=== PATIENT | male | born 1955 | race Caucasian/White ===

== ENCOUNTER 2024-02-02 11:47 | Day surgery (SDC) | payer MEDICARE ==
[~2024-02-02] VITALS: Ht 167.6 cm; Wt 72.6 kg
[~2024-02-02 11:47] MED LIST: NS 1,000 ML IV ONE; RED1TAB. PO
[2024-02-02] MEDS ORDERED: fentaNYL 100 MCG/2 ML INJECTION As Ordered ONE (13:55)
[2024-02-02] MEDS ORDERED: LIDOCAINE 2% 100MG/5ML SDV (FOR ANES.) As Ordered ONE (14:13)
[2024-02-02] MEDS ORDERED: propofoL 200 MG/20 ML VIAL As Ordered ONE (14:14)
[2024-02-02 14:40] VITALS: TEMP 98.2
[2024-02-02 14:57] VITALS: BP 129/78; O2SAT 97
== END 2024-02-02 15:02 | disposition home or self-care (01) ==
LOC: M OPP 11:47
PROVIDERS: ATTEND Internal Medicine Gastroenterology
DX: K44.9 Diaphragmatic hernia without obstruction or gangrene (principal); K29.70 Gastritis, unspecified, without bleeding; K31.89 Other diseases of stomach and duodenum; K22.70 Barrett's esophagus without dysplasia; R12 Heartburn
CPT/HCPCS: 43239; 88305; J3010

== ENCOUNTER 2024-03-31 11:04 | Day surgery (SDC) | payer MEDICARE ==
[~2024-03-31] VITALS: Ht 170.2 cm; Wt 70.3 kg
[~2024-03-31 11:04] MED LIST changes: +FAMO1TAB11 PO; -NS 1,000 ML IV ONE
[2024-03-31 13:49] VITALS: TEMP 97.9
[2024-03-31] MEDS ORDERED: LIDOCAINE VISCOUS 2% SOLN 15ML UDC As Ordered ONE (13:57)
[2024-03-31 14:26] VITALS: BP 160/90; O2SAT 97
== END 2024-03-31 14:41 | disposition home or self-care (01) ==
LOC: M OPP 11:04
PROVIDERS: ATTEND Surgery
DX: K22.2 Esophageal obstruction (principal); K44.9 Diaphragmatic hernia without obstruction or gangrene

== ENCOUNTER → 2024-04-18 | Outpatient (CLI) | payer MEDICARE ==
[~2024-04-18] MED LIST changes: +E-Z-GAS II EFFERVESCENT PACKET (SODIUM BICARB./CITRIC ACID/SIMETHICONE) As Ordered ONE; +E-Z-HD 98% w/w 340GM SUSP BTL As Ordered ONE; +E-Z-PAQUE 96% w/w SUSP 176GM BTL As Ordered ONE
== END ==
LOC: M RAD 10:26
PROVIDERS: ATTEND Surgery
DX: K44.9 Diaphragmatic hernia without obstruction or gangrene (principal)

== ENCOUNTER 2024-06-06 07:31 | Day surgery (SDC) | payer MEDICARE ==
[~2024-06-06] VITALS: Ht 167.6 cm; Wt 72.2 kg
[~2024-06-06 07:31] MED LIST changes: -E-Z-GAS II EFFERVESCENT PACKET (SODIUM BICARB./CITRIC ACID/SIMETHICONE) As Ordered ONE; -E-Z-HD 98% w/w 340GM SUSP BTL As Ordered ONE; -E-Z-PAQUE 96% w/w SUSP 176GM BTL As Ordered ONE
[2024-06-06] MEDS ORDERED: NS (Normal Saline) 0.9% 1,000 ML IV SCH ×2 (08:00→12:00)
[2024-06-06] MEDS: ceFAZolin SOD 2 GM in IV 1 EA IV ONE (09:50)
[2024-06-06] MEDS ORDERED: fentaNYL 250 MCG/5 ML INJECTION As Ordered ONE (10:00)
[2024-06-06] MEDS ORDERED: SUGAMMADEX SODIUM 500 MG/5 ML VIAL (BRIDION) As Ordered ONE (10:00)
[2024-06-06] MEDS ORDERED: ACETAMINOPHEN 1000MG/100ML IV BAG As Ordered ONE (10:00)
[2024-06-06] MEDS ORDERED: dexmedeTOMIDine (4MCG/ML)200MCG/50ML BTL (PRECEDEX) As Ordered ONE (10:00)
[2024-06-06] MEDS ORDERED: MIDAZOLAM INJ 2MG/2ML VIAL As Ordered ONE (10:00)
[2024-06-06] MEDS ORDERED: ROCURONIUM BROMIDE 50MG/5ML VIAL As Ordered ONE (10:00)
[2024-06-06] MEDS ORDERED: METOCLOPRAMIDE INJ 10MG/2ML VIAL As Ordered ONE (10:00)
[2024-06-06] MEDS ORDERED: propofoL 200 MG/20 ML VIAL As Ordered ONE (10:00)
[2024-06-06] MEDS ORDERED: ONDANSETRON 4MG 2ML VIAL As Ordered ONE (10:00)
[2024-06-06] MEDS ORDERED: LIDOCAINE 2% 100MG/5ML SDV (FOR ANES.) As Ordered ONE (10:00)
[2024-06-06] MEDS: HEPARIN SOD (PORCINE) 5000UNITS/ML 1ML VIAL/SYRINGE SQ ONE (10:15)
[2024-06-06] MEDS ORDERED: HYDROmorphone HCL 2MG/ML 1ML VIAL As Ordered ONE (10:34)
[2024-06-06] MEDS ORDERED: LABETALOL 100MG/20ML VIAL As Ordered ONE (10:44)
[2024-06-06] MEDS ORDERED: ONDANSETRON 4MG 2ML VIAL IV PRN (12:00)
[2024-06-06] MEDS ORDERED: HYDROMORPHONE HCL 0.5 MG/ 0.5 ML SYRINGE IV PRN (12:00)
[2024-06-06] MEDS ORDERED: fentaNYL 100 MCG/2 ML INJECTION IV PRN (12:00)
[2024-06-06] MEDS ORDERED: REGL10TA6 PO (12:15)
[2024-06-06] MEDS ORDERED: SIME1CAP4 PO (12:15)
[2024-06-06] MEDS: oxyCODONE 5MG TAB PO PRN (12:23)
[2024-06-06] MEDS ORDERED: KETOROLAC 60MG 2ML VIAL As Ordered ONE (12:51)
[2024-06-06 13:26] VITALS: BP 132/73; TEMP 97.2; O2SAT 96
== END 2024-06-06 14:09 | disposition home or self-care (01) ==
LOC: M SDC 07:31
PROVIDERS: ATTEND Surgery
DX: K44.9 Diaphragmatic hernia without obstruction or gangrene (principal); K21.9 Gastro-esophageal reflux disease without esophagitis; R06.83 Snoring; Z79.899 Other long term (current) drug therapy
CPT/HCPCS: 43281; C9290; J0131; J0665; J0690; J1100; J1171; J1885; J1920; J2250; J2405; J2765; J3010; S2900

== ENCOUNTER 2024-07-25 09:23 | Emergency (ER) | payer MEDICARE ==
[~2024-07-25] VITALS: Ht 167.6 cm; Wt 68.2 kg
[~2024-07-25 09:23] MED LIST changes: +REGL10TA6 PO; +SIME1CAP4 PO
[2024-07-25] MEDS ORDERED: MORPHINE 4 MG/ML 1ML VIAL IV PRN (09:50)
[2024-07-25 10:03] LABS: BASO # 0.1 10^3/uL (0.0-0.2); BASO % 0.8 % (0.0-1.0); EOS # 0.2 10^3/uL (0.0-0.5); EOS % 2.8 % (0.0-3.0); HEMATOCRIT 42.4 % (42.0-52.0); HEMOGLOBIN 14.6 g/dl (13.5-17.5); LYMPH # 1.9 10^3/uL (1.5-5.0); LYMPH % 29.2 % (24.0-44.0); MEAN CORPUSCULAR HEMOGLOBIN 29.2 pg (27.0-33.0); MEAN CORPUSCULAR HGB CONC 34.4 g/dl (32.0-36.5); MEAN CORPUSCULAR VOLUME 84.8 fl (80.0-96.0); MONO # 0.6 10^3/uL (0.0-0.8); MONO % 8.6 % (2.0-8.0); NEUTROPHILS # 3.8 10^3/uL (1.5-8.5); NEUTROPHILS % 58.3 % (36.0-66.0); PLATELET COUNT, AUTOMATED 259 10^3/uL (150-450); WHITE BLOOD COUNT 6.4 10^3/uL (4.0-10.0)
[2024-07-25 10:15] LABS: INR 0.95; PARTIAL THROMBOPLASTIN TIME 28.5 SECONDS (24.8-34.2)
[2024-07-25] MEDS: KETOROLAC 30 MG/ML 1ML VIAL IV ONE ×2 (10:16→12:07)
[2024-07-25 10:30] LABS: CK-MB VALUE MASS 1.8 NG/ML (<3.6); LIPASE 32 U/L (12-53)
[2024-07-25 10:32] LABS: CPK CREATINE PHOSPHOKINASE 169 U/L (46-171); MB/CK RELATIVE INDEX 1.06 (< OR =4)
[2024-07-25 10:33] LABS: ALBUMIN 3.7 G/DL (3.2-5.2); ALKALINE PHOSPHATASE 48 U/L (40-129); ALT/SGPT 27 U/L (7.0-40); AST/SGOT 20 U/L (<34); BILIRUBIN,DIRECT 0.3 MG/DL (<0.4); BILIRUBIN,TOTAL 0.8 MG/DL (0.3-1.2); BLOOD UREA NITROGEN 12 MG/DL (9-23); CALCIUM LEVEL 8.9 MG/DL (8.3-10.6); CARBON DIOXIDE LEVEL 29 MMOL/L (20-31); CHLORIDE LEVEL 106 MMOL/L (98-107); CREATININE FOR GFR 0.77 MG/DL (0.70-1.30); GLOMERULAR FILTRATION RATE > 60.0 (>49); GLUCOSE, FASTING 85 MG/DL (74-106); POTASSIUM SERUM 4.8 MMOL/L (3.5-5.1); SODIUM LEVEL 139 MMOL/L (136-145); TOTAL PROTEIN 6.5 G/DL (5.7-8.2)
[2024-07-25 10:34] LABS: FREE T4 1.22 NG/DL (0.89-1.76); THYROID STIMULATING HORMONE 1.365 uIU/ML (0.55-4.78)
[2024-07-25] MEDS ORDERED: ISOVUE-370 76% 100ML VIAL As Ordered ONE (10:41)
[2024-07-25 11:22] LABS: CK-MB VALUE MASS 1.8 NG/ML (<3.6)
[2024-07-25 11:24] LABS: CPK CREATINE PHOSPHOKINASE 150 U/L (46-171)
[2024-07-25] MEDS: ACETAMINOPHEN 325 MG TAB PO ONE (12:06)
[2024-07-25] MEDS: SUCRALFATE SUSP 1GM/10ML UD PO ONE (12:07)
[2024-07-25] MEDS ORDERED: PERC5TAB12 PO (14:14)
[2024-07-25 14:34] VITALS: BP 106/68; TEMP 98.4; O2SAT 97
== END 2024-07-25 14:46 | disposition home or self-care (01) ==
LOC: M ED 09:23 → EDBD 09:23 → M ED 14:46
DX: R07.9 Chest pain, unspecified (principal); Q40.1 Congenital hiatus hernia; I44.4 Left anterior fascicular block; Z87.891 Personal history of nicotine dependence; Z79.899 Other long term (current) drug therapy
CPT/HCPCS: 71045; 71275; 80047; 80048; 80076; 82550; 82553; 83690; 84439; 84443; 84484; 85025; 85610; 85730; 93005; 93041; 94760; 96374; 96375; 99285; J1885; Q9967

== ENCOUNTER → 2025-02-20 | Outpatient (CLI) | payer MEDICARE ==
[~2025-02-20] MED LIST changes: +PERC5TAB12 PO
== END ==
LOC: M WUC 09:22
PROVIDERS: ATTEND Nurse Practitioner Family
DX: M54.50 Low back pain, unspecified (principal)

== ENCOUNTER 2025-05-04 11:53 | Day surgery (SDC) | payer MEDICARE ==
[~2025-05-04] VITALS: Ht 167.6 cm; Wt 71.3 kg
[2025-05-04] MEDS: FAMOTIDINE 20 MG/2 ML VIAL IVP ONE (11:15)
[~2025-05-04 11:53] MED LIST changes: +KETOROLAC 30 MG/ML 1 ML VIAL As Ordered ONE; +LIDOCAINE 2% 100 MG/5 ML SDV (FOR ANES.) As Ordered ONE; +LR 1,000 ML IV SCH; +MIDAZOLAM INJ 2 MG/2 ML VIAL As Ordered ONE; +ONDANSETRON 4MG/2ML VIAL As Ordered ONE; +ROCURONIUM BROMIDE 50MG/5ML VIAL As Ordered ONE; +SUGAMMADEX SODIUM 200 MG/2 ML VIAL As Ordered ONE; +dexAMETHasone 4 MG/ML 1 ML VIAL As Ordered ONE; +dexmedeTOMIDine (4 MCG/ML) 200 MCG/50 ML BTL As Ordered ONE
[2025-05-04] MEDS ORDERED: ACETAMINOPHEN 1000MG/100ML IV BAG As Ordered ONE (12:32)
[2025-05-04] MEDS: ceFAZolin SOD 2 GM IV ONCE IV ONE (13:12)
[2025-05-04] MEDS: HEPARIN SOD 5000 UNITS/ML 1 ML VIAL/SYRINGE SQ ONE (13:19)
[2025-05-04] MEDS: FAMOTIDINE 20 MG/2 ML VIAL As Ordered ONE (13:20)
[2025-05-04] MEDS ORDERED: HYDR-3713 PO ×2 (14:49→17:19)
[2025-05-04] MEDS: HYDROMORPHONE HCL 0.5 MG/0.5 ML SYRINGE IV PRN (15:10)
[2025-05-04] MEDS: ONDANSETRON 4MG/2ML VIAL IV PRN (15:24)
[2025-05-04] MEDS: MORPHINE 4 MG/ML 1 ML VIAL IV PRN (16:32)
[2025-05-04 18:35] VITALS: BP 142/73; TEMP 97.1; O2SAT 98
== END 2025-05-04 18:42 | disposition home or self-care (01) ==
LOC: M SDC 11:53
PROVIDERS: ATTEND Surgery
DX: K40.90 Unilateral inguinal hernia, without obstruction or gangrene, not specified as recurrent (principal)
CPT/HCPCS: 49650; 93005; C1781; J0131; J0665; J0688; J1100; J1171; J1308; J1885; J2250; J2405; J3010

== ENCOUNTER 2025-06-12 01:33 | Observation (INO) | payer MEDICARE ==
[~2025-06-12] VITALS: Ht 167.6 cm; Wt 72.7 kg
[~2025-06-12 01:33] MED LIST changes: +HYDR-3713 PO; -KETOROLAC 30 MG/ML 1 ML VIAL As Ordered ONE; -LIDOCAINE 2% 100 MG/5 ML SDV (FOR ANES.) As Ordered ONE; -LR 1,000 ML IV SCH; -MIDAZOLAM INJ 2 MG/2 ML VIAL As Ordered ONE; -ONDANSETRON 4MG/2ML VIAL As Ordered ONE; -ROCURONIUM BROMIDE 50MG/5ML VIAL As Ordered ONE; -SUGAMMADEX SODIUM 200 MG/2 ML VIAL As Ordered ONE; -dexAMETHasone 4 MG/ML 1 ML VIAL As Ordered ONE; -dexmedeTOMIDine (4 MCG/ML) 200 MCG/50 ML BTL As Ordered ONE
[2025-06-12] MEDS: METHOCARBAMOL 1,000 MG/10 ML VIAL IV ONE (04:35)
[2025-06-12] MEDS: KETOROLAC 30 MG/ML 1 ML VIAL IV ONE (04:36)
[2025-06-12] MEDS: ONDANSETRON 4MG/2ML VIAL IV ONE (05:36)
[2025-06-12] MEDS: MORPHINE 4 MG/ML 1 ML VIAL IV PRN ×2 (05:37→09:30)
[2025-06-12] MEDS ORDERED: ISOVUE-370 76% 100 ML VIAL As Ordered ONE (09:08)
[2025-06-12 09:13] LABS: BASO # 0.1 10^3/uL (0.0-0.2); BASO % 0.8 % (0.0-1.0); EOS # 0.2 10^3/uL (0.0-0.5); EOS % 3.0 % (0.0-3.0); LYMPH # 1.9 10^3/uL (1.5-5.0); LYMPH % 28.9 % (24.0-44.0); MONO # 0.7 10^3/uL (0.0-0.8); MONO % 9.8 % (2.0-8.0); NEUTROPHILS # 3.8 10^3/uL (1.5-8.5); NEUTROPHILS % 57.2 % (36.0-66.0); PLATELET COUNT, AUTOMATED 265 10^3/uL (150-450)
[2025-06-12] MEDS: LIDOCAINE 2% 5 ML JELLY UROJET TOP ONE (09:29)
[2025-06-12] MEDS: NS (Normal Saline) 0.9% 1,000 ML IV ONE (09:30)
[2025-06-12 09:40] LABS: ALT/SGPT 26 U/L (7.0-40); AST/SGOT 37 U/L (<34); CALCIUM LEVEL 8.4 MG/DL (8.3-10.6); CARBON DIOXIDE LEVEL 29 MMOL/L (20-31); CHLORIDE LEVEL 106 MMOL/L (98-107); CREATININE FOR GFR 0.85 MG/DL (0.70-1.30); GLOMERULAR FILTRATION RATE > 90.0 (>49); POTASSIUM SERUM 4.4 MMOL/L (3.5-5.1); SODIUM LEVEL 141 MMOL/L (136-145)
[2025-06-12 09:43] LABS: INR 1.0
[2025-06-12 09:57] LABS: APPEARANCE, URINE CLEAR (CLEAR); BACTERIA, URINE AUTO NEGATIVE (NEGATIVE); BILIRUBIN, URINE AUTO NEGATIVE (NEGATIVE); BLOOD, URINE BLOOD NEGATIVE (NEGATIVE); GLUCOSE, URINE (UA) AUTO NEGATIVE (NEGATIVE); KETONE, URINE AUTO NEGATIVE (NEGATIVE); LEUKOCYTE ESTERASE, URINE AUTO NEGATIVE (NEGATIVE); NITRITE, URINE AUTO NEGATIVE (NEGATIVE); PROTEIN, URINE AUTO NEGATIVE (NEGATIVE); RBC, URINE AUTO 1 /HPF (0-3); SPECIFIC GRAVITY URINE AUTO 1.012 (1.002-1.035); SQUAMOUS EPITHELIAL CELL UR AU 0 /HPF (0-6); UROBILINOGEN, URINE AUTO 0.2 mg/dL (0.0-2.0); WBC, URINE AUTO 0 /HPF (0-3)
[2025-06-12] MEDS ORDERED: ONDANSETRON 4MG/2ML VIAL IV PRN (14:15)
[2025-06-12] MEDS ORDERED: IBUP200C25 PO (14:21)
[2025-06-12] MEDS ORDERED: HOME MED LIST COMPLETE! XX SCH (14:25)
[2025-06-12] MEDS ORDERED: PILL CUTTER 1 EACH XX PRN (14:25)
[2025-06-12] MEDS: LIDOCAINE 5% PATCH TD SCH (14:56)
[2025-06-12] MEDS: ACETAMINOPHEN 325 MG TAB PO SCH (14:56)
[2025-06-12 15:40] VITALS: BP 121/59; TEMP 98.8; O2SAT 97
[2025-06-12 20:00] VITALS: BP 106/55; TEMP 98.1; O2SAT 95
[2025-06-13 04:30] VITALS: BP 110/53; TEMP 98.6; O2SAT 97
[2025-06-13 06:26] LABS: PLATELET COUNT, AUTOMATED 258 10^3/uL (150-450)
[2025-06-13] MEDS: TAMSULOSIN 0.4 MG CAP PO ONE (06:26)
[2025-06-13 06:49] LABS: CALCIUM LEVEL 8.3 MG/DL (8.3-10.6); CARBON DIOXIDE LEVEL 28 MMOL/L (20-31); CHLORIDE LEVEL 105 MMOL/L (98-107); CREATININE FOR GFR 0.82 MG/DL (0.70-1.30); GLOMERULAR FILTRATION RATE > 90.0 (>49); POTASSIUM SERUM 4.5 MMOL/L (3.5-5.1); SODIUM LEVEL 140 MMOL/L (136-145)
[2025-06-13] MEDS: MIRALAX *UNIT DOSE* 17 GM PACKET PO PRN (08:31)
[2025-06-13] MEDS: SENNA 8.6 MG TAB PO PRN (08:31)
[2025-06-13] MEDS: ENOXAPARIN 40 MG/0.4 ML SYRINGE (J1650 PER 10MG) SC SCH (08:31)
[2025-06-13] MEDS: MELOXICAM 7.5 MG TAB PO ONE (10:28)
[2025-06-13 12:00] VITALS: BP 158/76; TEMP 100.1; O2SAT 98
[2025-06-13] MEDS ORDERED: ACETAMINOPHEN 500 MG TAB PO PRN (14:25)
[2025-06-13] MEDS: CYCLOBENZAPRINE 5 MG TABLET PO SCH (14:36)
[2025-06-13 20:00] VITALS: BP 110/58; TEMP 98.1; O2SAT 95
[2025-06-14 04:00] VITALS: BP 115/60; TEMP 98.5; O2SAT 98
[2025-06-14] MEDS: MELOXICAM 7.5 MG TAB PO SCH (05:54)
[2025-06-14] MEDS: TAMSULOSIN 0.4 MG CAP PO SCH (08:23)
[2025-06-14 08:36] LABS: PLATELET COUNT, AUTOMATED 273 10^3/uL (150-450)
[2025-06-14 08:59] LABS: CALCIUM LEVEL 8.5 MG/DL (8.3-10.6); CARBON DIOXIDE LEVEL 28 MMOL/L (20-31); CHLORIDE LEVEL 106 MMOL/L (98-107); CREATININE FOR GFR 0.77 MG/DL (0.70-1.30); GLOMERULAR FILTRATION RATE > 90.0 (>49); POTASSIUM SERUM 4.6 MMOL/L (3.5-5.1); SODIUM LEVEL 141 MMOL/L (136-145)
[2025-06-14] MEDS ORDERED: TAMS1CAP17 PO (10:13)
[2025-06-14] MEDS ORDERED: MELO7.5T35 PO (10:13)
[2025-06-14] MEDS ORDERED: ACET-683 PO (10:13)
[2025-06-14] MEDS ORDERED: CYCL5TAB4 PO (10:13)
[2025-06-14] MEDS ORDERED: OXYC-517 PO (10:13)
[2025-06-14] MEDS ORDERED: LIDO5TD TD (10:13)
== END 2025-06-14 12:06 | disposition home or self-care (01) ==
LOC: M ED 01:33 → M ED INP 01:34 → M MS4PR 15:38
PROVIDERS: ADMIT Student in an Organized Health Care Education/Training Program; ATTEND Student in an Organized Health Care Education/Training Program
DX: S22.32XA Fracture of one rib, left side, initial encounter for closed fracture (principal); J44.9 Chronic obstructive pulmonary disease, unspecified; I11.0 Hypertensive heart disease with heart failure; K56.7 Ileus, unspecified; N42.9 Disorder of prostate, unspecified; M48.07 Spinal stenosis, lumbosacral region; W00.0XXA Fall on same level due to ice and snow, initial encounter; S00.83XA Contusion of other part of head, initial encounter; Y92.9 Unspecified place or not applicable; K22.70 Barrett's esophagus without dysplasia; R33.9 Retention of urine, unspecified
CPT/HCPCS: 36415; 70450; 70486; 71045; 71260; 72125; 72131; 74177; 80047; 80048; 80076; 81001; 82150; 83690; 85025; 85027; 85610; 85730; 86850; 86900; 86901; 93041; 94760; 96372; 96374; 96375; 96376; 97116; 97140; 97161; 97165; 97530; 97535; 99291; G0378; J1650; J1885; J2405; J2800; J3360; Q9967